=== PATIENT | male | born 1970 ===

== ENCOUNTER 2023-01-17 13:17 | Emergency (ER) | payer OTHER, SELFPAY ==
[2023-01-17 13:34] VITALS: BP 147/89; PULSE 102; RESP 20; TEMP 36.8; O2SAT 96
--- NOTE | 2023-01-17 15:20 | ED.WOUNDLAC ---
HPI - Wound/Laceration General Chief Complaint: Wound/Laceration Stated Complaint: body aches,nausea Source: patient, family, RN notes reviewed and old records reviewed Mode of arrival: ambulatory Limitations: no limitations History of Present Illness HPI narrative: 52year old male accompanied by with complaints of red raised area to eft upper back above shoulder blade for the past 7 days which he states has increased in size, no drainage from site is painful and warm to palpation.He also reports that he has had some nausea and body aches also for the past 7 days. Patient reports that he has taken some cold medications, Patient denies any known fevers, chills or sweats. Patient is diabetic. He reports pain to site at 10/06 described as aching. Onset (ago): day(s) () Location: back (left upper back) Treatments prior to arrival: other (took some cold medication) Related Data Home Medications Medication Instructions Recorded Confirmed fenofibrate nanocrystallized 145 mg PO 01/17/23 mg tablet glipizide 10 mg tablet, extended mg PO 01/17/23 release 24 hr lisinopril 20 mg tablet mg 01/17/23 metformin 1,000 mg tablet mg 01/17/23 pravastatin 40 mg tablet mg 01/17/23 Allergies Allergy/AdvReac Type Severity Reaction Status Date / Time No Known Allergies Allergy Verified 01/17/23 14:28 Review of Systems Review of Systems: CONSTITUTIONAL: Denies fever, chills, or sweats. CARDIOVASCULAR: Denies chest pain, palpitations, or edema. RESPIRATORY: Denies cough or dyspnea. GASTROINTESTINAL: Denies abdominal pain,states some nausea,no vomiting, no diarrhea SKIN: Reports redness, induration, and swelling to tissue above left scapula region of left upper back, reports discomfort to area with some warm, no fluctuant tissue noted, no purulent drainage,no pustules noted MUSCULOSKELETAL: Reports some myalgia. NEUROLOGIC: Denies headache, numbness All systems reviewed & are unremarkable except as noted in HPI and below PMFSH Past Medical History Medical History (Updated 01/19/23 @ 12:23 by Gabby Mooney NP) Cellulitis of groin Diabetes Dyslipidemia Hypertension Morbid obesity Surgical History Surgical History (Updated 01/19/23 @ 12:23 by Gabby Mooney NP) H/O ventral hernia repair Family History Family History (Updated 10/01/18 @ 15:36 by DOCTOR UNKNOWN) Father Hypertension Mother Hypertension Social History Social History (Updated 01/19/23 @ 14:14 by Gabby Mooney NP) Smoking status: Current every day smoker Alcohol intake: current Living arrangements: with family Gender identity (if verbalized by the patient): Male Comments At time of signature, agree with nursing past medical, surgical, social and family history. There is no relevant family history pertinent to the presenting complaint Exam Narrative: GENERAL: Well-appearing, well-nourished, morbidly obese,and in no acute distress. HEAD: Normocephalic, atraumatic. EYES: PERRLA and EOMI. ENT: Nares clear, no rhinorrhea or epistaxis. Mucous membranes moist. TM's normal throat pink with no swelling. NECK: Supple. no lymphadenopathy CHEST: Clear to auscultation. No respiratory distress. HEART: Regular rate and rhythm. No murmur heard. Normal peripheral pulses. ABDOMEN: Soft, nontender, nondistended, normal active bowel sounds. EXTREMITIES: Normal range of motion. No edema. SKIN: Warm, dry. Erythema, induration, tenderness, warmth with area noted to be 5cmX 14cm with no vesicles or pustules noted no drainage site is painful. No Fluctuant tissue noted. NEURO: No focal deficits. Alert and oriented x3. Course Course Emergency Course: Patient is aware of diagnosis, understands and agrees to treatment plan. Anticipatory guidance given. Patient agrees to follow-up as directed and is aware of reasons to seek care at the emergency department. Portions of this record may have been created with voice recognition software
== END 2023-01-17 15:28 | disposition home or self-care (01) ==
PROVIDERS: Emergency Provider Registered Nurse; PCP Emergency Medicine
DX: L02.212 Cutaneous abscess of back [any part, except buttock and flank] (principal); L03.312 Cellulitis of back [any part except buttock and flank]; F17.200 Nicotine dependence, unspecified, uncomplicated; E11.9 Type 2 diabetes mellitus without complications; E78.5 Hyperlipidemia, unspecified; I10 Essential (primary) hypertension; E66.01 Morbid (severe) obesity due to excess calories; Z68.39 Body mass index [BMI] 39.0-39.9, adult
CPT/HCPCS: 99203; G0463

== ENCOUNTER 2023-01-27 16:28 | Emergency (ER) | payer OTHER, SELFPAY ==
[2023-01-27 16:32] VITALS: BP 127/81; PULSE 91; RESP 20; TEMP 36.9; O2SAT 97
--- NOTE | 2023-01-27 16:37 | ED.SKABFB ---
HPI - Skin/Abscess/Foreign Bdy General Chief complaint: Skin/Abscess/Foreign Body Stated complaint: recheck abcess Source: patient and RN notes reviewed History of Present Illness HPI narrative: 52 yo M presents to urgent care with requests for a recheck of his abscess. Pt was seen here 10 days ago and dx with an abscess and possible cellulitis to his left upper back. Pt was given a 10 day course of Clindamycin and mupirocin which he finished today. Pt states he no longer is having fevers and is no longer nauseated but his wanted the area checked out. Related Data Home Medications Medication Instructions Recorded Confirmed fenofibrate nanocrystallized 145 145 mg PO DIRECTED 01/17/23 01/27/23 mg tablet glipizide 10 mg tablet, extended 10 mg PO DIRECTED 01/17/23 01/27/23 release 24 hr lisinopril 20 mg tablet 20 mg PO DIRECTED 01/17/23 01/27/23 metformin 1,000 mg tablet 1,000 mg PO DIRECTED 01/17/23 01/27/23 pravastatin 40 mg tablet 40 mg PO DIRECTED 01/17/23 01/27/23 Allergies Allergy/AdvReac Type Severity Reaction Status Date / Time No Known Allergies Allergy Verified 01/27/23 16:42 Review of Systems Review of Systems: CONSTITUTIONAL: Denies fever, chills, or sweats. EYES: Denies visual changes, redness, or discharge. ENT: Denies otalgia and sore throat CARDIOVASCULAR: Denies chest pain, palpitations, or edema. RESPIRATORY: Denies cough or dyspnea. GASTROINTESTINAL: Denies abdominal pain, nausea, vomiting, or diarrhea. GENITOURINARY: Denies dysuria or hematuria. SKIN: Abscess area to left upper back MUSCULOSKELETAL: Denies back pain, joint pain, or myalgia. NEUROLOGIC: Denies headache, numbness, or weakness. Pertinent positives per HPI. ON LICENSE OF [facility] Past Medical History Medical History (Updated 01/27/23 @ 17:14 by Melissa Waterman APRN) Cellulitis of groin Diabetes Dyslipidemia Hypertension Morbid obesity Surgical History Surgical History (Updated 01/19/23 @ 12:23 by Gabby Mooney NP) H/O ventral hernia repair Family History Family History (Updated 10/01/18 @ 15:36 by DOCTOR UNKNOWN) Father Hypertension Mother Hypertension Social History Social History (Updated 01/19/23 @ 14:14 by Gabby Mooney NP) Smoking status: Current every day smoker Alcohol intake: current Living arrangements: with family Gender identity (if verbalized by the patient): Male Comments At the time of my signature, I reviewed and agree with the nursing past medical, surgical, social, and family history. There is no relevant family history pertinent to the patient complaint. Exam Narrative: GENERAL: This is a well-nourished, well-developed patient, in no apparent distress. HEAD: normocephalic, atraumatic. EYES: Sclera clear/white. Vision is grossly intact. EARS: External ears normal, auditory canals clear and without drainage. Hearing grossly intact. NOSE: External nose normal with no obvious nasal discharge, nares without redness, no rhinorrhea. THROAT: Mucous membranes moist, posterior pharynx clear. NECK: Neck supple, non-tender without lymphadenopathy, masses or thyromegaly. CARDIOVASCULAR: Regular rate RESPIRATORY:No respiratory distress SKIN: 11.5cm x 9 cm area of erythema to left upper back. Area had some porous areas to left side, more indurated on the right side. NEURO: awake, alert, and oriented to person, place and time. There were no obvious focal neurologic abnormalities. EXTREMITIES: No clubbing, cyanosis, or edema. No joint tenderness, effusion, or edema noted. BACK: Tenderness, erythremic, area to right upper back. Course Course Level of Care: Express Care Visit Vital Signs Vital signs: Vital Signs Temperature 98.4 F 01/27/23 16:32 Pulse Rate 91 01/27/23 16:32 Respiratory Rate 20 01/27/23 16:32 Blood Pressure 127/81 01/27/23 16:32 Pulse Oximetry 97 01/27/23 16:32 Oxygen Delivery Room Air 01/27/23 16:32 Temp
== END 2023-01-27 17:17 | disposition home or self-care (01) ==
PROVIDERS: Emergency Provider Nurse Practitioner Family; PCP Emergency Medicine
DX: L02.212 Cutaneous abscess of back [any part, except buttock and flank] (principal); L03.312 Cellulitis of back [any part except buttock and flank]; B95.62 Methicillin resistant Staphylococcus aureus infection as the cause of diseases classified elsewhere; F17.200 Nicotine dependence, unspecified, uncomplicated; E11.9 Type 2 diabetes mellitus without complications; Z79.84 Long term (current) use of oral hypoglycemic drugs; E78.5 Hyperlipidemia, unspecified; I10 Essential (primary) hypertension; E66.01 Morbid (severe) obesity due to excess calories; Z68.39 Body mass index [BMI] 39.0-39.9, adult
CPT/HCPCS: 10060; 87070; 87147; 87181; 87186; 87205; 99213; G0463

== ENCOUNTER 2023-02-26 12:17 | Outpatient (NON) | payer OTHER, SELFPAY | END 2023-02-26 12:18 | disposition home or self-care (01) | LOC: ANHLAB 12:18 | PROVIDERS: PCP Emergency Medicine; Visit Provider Surgery | DX: L02.212 Cutaneous abscess of back [any part, except buttock and flank] (principal) | CPT/HCPCS: 87070; 87075; 87147; 87186; 87205 ==